=== PATIENT | female | born 1955 | race Caucasian/White ===

== ENCOUNTER 2017-01-29 08:21 | Observation (INO) ==
--- NOTE | 2017-01-29 09:14 | XRay Report ---
Indication: Fall this morning with ankle PAIN AND SWELLING PROCEDURE: XR ankle RT min 3V: Encounter: Initial Comparison: None Findings: Mildly displaced medial malleolar fracture with an oblique minimally displaced fracture of the distal fibula. No additional acute fracture seen. Lateral soft tissue swelling. The ankle mortise appears symmetric. Tibiofibular syndesmosis does not appear widened. Subtle cortical irregularity of the posterior distal tibia seen on the lateral view only. Impression: Closed posttraumatic distal tibial and fibular fractures. This is at least a Howell type B ankle fracture. Slight irregularity of the posterior distal tibia on the lateral view could represent a trimalleolar fracture. .
[2017-01-29] MEDS ORDERED: MORPHINE SULFATE 10 MG/ML VIAL IVP PRN (09:31)
[2017-01-29] MEDS ORDERED: ONDANSETRON 4 MG/2 ML INJECTION IVP PRN ×2 (09:31→17:42)
[2017-01-29] MEDS ORDERED: NS 1,000 ML IV SCH ×2 (09:45→17:42)
--- NOTE | 2017-01-29 09:45 | Emergency Department Report ---
Lower Extremity Injury HPI - General Chief Complaint: Extremity Injury, Lower Stated Complaint: right ankle pain Time Seen by Provider: 01/29/17 09:00 - History of Present Illness HPI Narrative: 62-year-old female presents with right ankle pain. Patient was hoping remove a client in a wheelchair, the wheelchair caught coming out of the van and began to tip. She pulled the wheelchair trying to straighten it and the wheelchair came off the van and onto her ankle. She feels like her ankle folded up underneath her. She cannot bear weight without severe pain. No other injuries or complaints. She did eat breakfast at approximately 06 30 this morning. She is on no blood thinners. She states she has sensation down into her toes. - Related Data Home Medications Medication Instructions Recorded Confirmed Acetaminophen [Tylenol Extra 1 - 2 tab PO Q6H PRN #0 tab 03/23/14 Strength] Ibuprofen 1 cap PO Q4H PRN #0 cap 03/23/14 01/29/17 [place]-3 Fatty Acids/Fish Oil [Fish 1,000 mg PO DAILY #0 cap 03/23/14 01/29/17 Oil 1,000 mg Capsule] Albuterol Sulfate (Albuterol 2 puff INH PRN PRN #0 inhaler 03/24/14 01/29/17 Sulfate Hfa) Atomoxetine HCl [Strattera] 40 mg PO DAILY 01/29/17 01/29/17 Atorvastatin [Lipitor] 1 tab PO HS 01/29/17 01/29/17 Brexpiprazole [Rexulti] 0.5 mg PO DAILY 01/29/17 01/29/17 Levomilnacipran HCl [Fetzima] 80 mg PO DAILY 01/29/17 01/29/17 Raloxifene HCl 60 mg PO DAILY 01/29/17 01/29/17 Allergies Allergy/AdvReac Type Severity Reaction Status Date / Time Shellfish Allergy Unknown Uncoded 01/29/17 08:40 Review of Systems All systems: reviewed and negative except as stated PFSH Patient Stated Medical History Other Yes: CYSTITIS Depression Yes Now No - Social History Smoking status: Never smoker Substance use type: does not use Alcohol intake frequency: does not drink Physical Exam - General General appearance: alert, in distress (from fracture/ankle pain) - Normal Exams: Head:: Normocephalic without trauma Neck:: Full range of motion, without adenopathy, JVD, bruits or thyromegaly Chest/Respirations:: Clear all baeza, with good airflow, and symmetry bilaterally Cardiovascular:: Regular rate and rhythm, without murmur or gallop, Pulses 2+ all extremities, capillary refill, <2 seconds all extremities Abdomen:: Bowel sounds positive, soft, non-tender, non-distended, no hepatosplenomegaly, masses or bruits noted Neurological:: Patient is alert, and oriented, cranial nerves, motor/sensory/ cerebellar, exams w/o gross deficits, to observation - Expanded Lower Extremity Exam Ankle exam: Present: tenderness, swelling, ecchymosis, other (right ankle has tenderness swelling and ecchymosis on both malleoli. Pedal pulses positive) Course Vital Signs Temperature 97.9 F 01/29/17 08:25 Pulse Rate 94 01/29/17 08:25 Respiratory Rate 18 01/29/17 08:25 Blood Pressure 133/68 01/29/17 08:25 Pulse Oximetry 99 01/29/17 08:25 Temperature 97.9 F 01/29/17 08:25 Pulse Rate 90 01/29/17 08:40 Respiratory Rate 18 01/29/17 08:25 Blood Pressure 133/68 01/29/17 08:25 Pulse Oximetry 99 01/29/17 08:25 Extremity Injury, Lower - MDM Narrative Medical decision making narrative: Distal tibia and fibular fracture noted. This was discussed with radiology and with orthopedics. Dr. De La Torre will take the patient back to the OR this afternoon. Foot is iced and kept elevated. IV is in place. Disposition Clinical Impression: Tibia/fibula fracture Disposition: To [facility] Condition: Improved Prescriptions: No Action [place]-3 Fatty Acids/Fish Oil [Fish Oil 1,000 mg Capsule] 1,000 mg PO DAILY # 0 cap Acetaminophen [Tylenol Extra Strength] 1 - 2 tab PO Q6H PRN #0 tab PRN Reason: PAIN Albuterol Sulfate (Albuterol Sulfate Hfa) 2 puff INH PRN PRN #0 inhaler PRN Reason: Asthma Atomoxetine HCl [Strattera] 40 mg PO DAILY Raloxifene HCl 60 mg PO DAILY Brexpiprazole [Rexulti] 0.5 mg PO DAILY Ibuprofen 1 cap PO Q4H PRN #0 cap PRN Reason: Pain Atorvastatin [Lipitor] 1 tab PO HS Levomilnacipran HCl [Fetzima] 80 mg PO DAILY Referrals: Dustin Cherry DO [Primary Care Provider] - Time of Disposition: 09:45 - Seen By: physician
[2017-01-29] MEDS: MORPHINE SULFATE 10 MG SYRINGE IVP PRN ×2 (10:57→21:39)
[2017-01-29 11:43] VITALS: BMI 23.1
--- NOTE | 2017-01-29 11:55 | Consult Note ---
<Elba Seaman - Last Filed: 01/29/17 13:16> Consult Information - Data of Consult Patient: new to practice Consult date: 01/29/17 Requesting Physician: Kwaku De La Torre MD Primary Care Provider: Dustin Cherry DO - Consult Narrative Reason for consult: preop medical clearance History of present illness: Patient is a pleasant 62-year-old female patient of Dr. Cherry, who was admitted through the emergency room due to a tibia/fibula fracture. She works for [employer] and was backing a client in a wheelchair down the ramp from the van and the wheelchair started tipping over. When trying to correct this, she fell and twisted her ankle, and the wheelchair and client fell across her. This happened at 735 this morning. She denies any other injuries. She was evaluated in the emergency room with labs, EKG, and ankle x-ray. Her CBC and CMP were essentially normal. Her INR was 0.96. EKG was normal. Chest x-ray was ordered once she was on the floor. This is pending. She states she is in general good health. Her pain is currently under control. She last ate at 6:30 AM. PFSH Hyperlipidemia Depression/anxiety/ADHD Osteopenia GERD Fibromyalgia Rheumatoid arthritis-patient reports she has seen a specialist for this in [place]. She does not take medication for RA. Trigonitis Atrophic vaginitis-on ERT Surgical History: Hysterectomy and unilateral oophorectomy. . Tonsillectomy. "Bladder/urethral laser" for trigonitis (x4+)-Dr. Yee Family History: Father -cirrhosis (was a prieto who frequently worked with chemicals) Mother - hypertension - Social History Smoking status: Never smoker Substance use type: does not use Alcohol intake frequency: a few times a month (sangria) Housing: house Household members: spouse Current occupational status: employed ([employer]) Social history: PCP-Dr. Cherry Urologist-previously was Dr. Yee. Now seeing Dr. Rachel Hurley Review of Systems Comprehensive ROS: completed and no additional positive findings except those as stated - Gastrointestinal Gastrointestinal Comments: Last bowel movement was yesterday - Musculoskeletal Musculoskeletal Comments: Right ankle pain Medications Home Medications Medication Instructions Recorded Confirmed Type Acetaminophen [Tylenol Extra 1 - 2 tab PO Q6H PRN #0 tab 03/23/14 History Strength] Ibuprofen 1 cap PO Q4H PRN #0 cap 03/23/14 01/29/17 History [place]-3 Fatty Acids/Fish Oil [Fish 1,000 mg PO DAILY #0 cap 03/23/14 01/29/17 History Oil 1,000 mg Capsule] Albuterol Sulfate (Albuterol 2 puff INH PRN PRN #0 inhaler 03/24/14 01/29/17 History Sulfate Hfa) Atomoxetine HCl [Strattera] 40 mg PO DAILY 01/29/17 01/29/17 History Atorvastatin [Lipitor] 1 tab PO HS 01/29/17 01/29/17 History Brexpiprazole [Rexulti] 0.5 mg PO DAILY 01/29/17 01/29/17 History Levomilnacipran HCl [Fetzima] 80 mg PO DAILY 01/29/17 01/29/17 History Raloxifene HCl 60 mg PO DAILY 01/29/17 01/29/17 History Allergies Allergy/AdvReac Type Severity Reaction Status Date / Time No Known Drug Allergies Allergy Verified 01/29/17 11:32 Exam Vital Signs: Temperature 97.1 F 01/29/17 11:39 Pulse Rate 88 01/29/17 11:39 Respiratory Rate 16 01/29/17 11:39 Blood Pressure 140/89 H 01/29/17 11:39 Pulse Oximetry 99 01/29/17 11:39 Oxygen Delivery Method Room Air Height/Weight/BMI: Height 1.57 m Weight 57.4 kg Body Mass Index 23.1 - Constitutional Present: no acute distress, well nourished, well developed - Routine HEENT Exam Head: Present: normocephalic, atraumatic Eye: Present: EOMI, PERRL ENT: Present: mucous membranes moist, dentition normal - Routine Neck Exam Present: supple, full ROM - Routine Respiratory Exam Present: CTA bilaterally. Absent: wheezes - Routine Cardiovascular Exam Present: RRR, S1, S2. Absent: murmur - Routine Abdominal Exam Present: soft, normoactive bowel sounds, non distended. Absent: tenderness - Routine Extremities Exam Present: no edema, normal capillary refill Comments: Right ankle is splinted and wrapped - Routine Skin Exam Present: dry, warm - Routine Neurological Exam Present: alert, oriented X3 Cranial nerves III-XII intact - Routine Psychiatric Exam Present: normal affect, normal thought process Results - Labs CBC & Chem 7: 01/29/17 09:40 01/29/17 09:40 - ECG Data Tracing #1 Normal sinus rhythm with no acute changes. - Imaging and Cardiology Chest x-ray Additional comments: Negative Assessment and Plan (1) Tibia/fibula fracture Current visit: Yes Status: Acute (2) Hyperlipidemia Current visit: Yes Status: Acute (3) Depression Current visit: Yes Status: Acute (4) Osteopenia Current visit: Yes Status: Acute (5) Fibromyalgia Current visit: Yes Status: Acute (6) GERD without esophagitis Current visit: Yes Status: Acute Assessment and Plan: Assessment: Closed posttraumatic distal tibial and fibular fracture Hyperlipidemia Depression/anxiety/ADHD-follows with [facility] Osteopenia GERD Fibromyalgia Rheumatoid arthritis-patient reports she has seen a specialist for this in [place]. She does not take medication for RA. Trigonitis Atrophic vaginitis -on ERT Plan: Continue NPO status. Other orders per ortho. Patient is medically stable. Cleared for surgery. Hospital Course Summary Disclaimer: The visit summary below is not to be considered part of the above Progress Note. Sepsis Assessment - Evaluation Sepsis screening result: No Definite Risk <Jose Mejias - Last Filed: 01/29/17 13:54> Consult Information - Data of Consult Requesting Physician: Kwaku De La Torre MD Primary Care Provider: Dustin Cherry DO [facility] Patient Stated Medical History Valvular Heart Disease Yes Other Respiratory Yes: allergies, ADHD Hx Urinary Tract Infection Yes: urethra dilations every 5 years Other Yes: CYSTITIS Other Musculoskeletal Yes: osteopenia, 3 herniated disks on cervical Depression Yes Post Menopausal Yes Now No Exam Vital Signs: Temperature 97.1 F 01/29/17 11:39 Pulse Rate 88 01/29/17 11:39 Respiratory Rate 16 01/29/17 11:39 Blood Pressure 140/89 H 01/29/17 11:39 Pulse Oximetry 99 01/29/17 11:39 Oxygen Delivery Method Room Air Height/Weight/BMI: Height 1.57 m Weight 57.4 kg Body Mass Index 23.1 Results - Labs CBC & Chem 7: 01/29/17 09:40 01/29/17 09:40 Assessment and Plan (1) Tibia/fibula fracture Current visit: Yes Status: Acute (2) Hyperlipidemia Current visit: Yes Status: Acute (3) Depression Current visit: Yes Status: Acute (4) Osteopenia Current visit: Yes Status: Acute (5) Fibromyalgia Current visit: Yes Status: Acute (6) GERD without esophagitis Current visit: Yes Status: Acute DVT Prophylaxis: SCD's Assessment and Plan: Assessment: Closed posttraumatic distal tibial and fibular fracture Hyperlipidemia Depression/anxiety/ADHD-follows with [facility] Osteopenia GERD Fibromyalgia Rheumatoid arthritis-patient reports she has seen a specialist for this in [place]. She does not take medication for RA. Trigonitis Atrophic vaginitis -on ERT Have independently interviewed and examined pt. Chart reviewed. Case discussed with my PA. Care plan developed with my supervision; agree with above. Presents to ED secondary to trauma and pain from ankle injury. Was working to help back a patient in wheelchair down the van reji. Wheelchair wheels got caught and was struggling to reposition wheelchair. Chair started to move back and as she tried to correct this, the chair tipped over. She got her foot caught and twisted. Ultimately fell; wheelchair and patient landed on top of her. Denies head injury or loss of consciousness. Did have significant pain. Taken to [facility] for evaluation-found to have tib-fib fracture and subsequently placed in OBS status for definitive orthopedic evaluation and treatment. Patient has been in her typical state of health prior to this injury. No chest pressure/pain/palpations. Respiratory status stable without SOA, cough, or congestion. Does stay active and walks daily. Denies CAD or pulmonary disease. Lungs: clear CV: regular AB: soft nt/nd +BS MSE: awake alert appropriate. Communicates well. Plan: Agree with OBS plan. SCD for DVT prevention. Pain and nausea control. Anticipate Sx in near future. Medically stable for surgery - no obvious contraindications to surgery at this time. kevan is a pleasant 62-year-old female patient of Dr. Cherry, who was admitted through the emergency room due to a tibia/fibula fracture. She works for [employer] and was backing a client in a wheelchair down the ramp from the van and the wheelchair started tipping over. When trying to correct this, she fell and twisted her ankle, and the wheelchair and client fell across her. This happened at 735 this morning. She denies any other injuries. She was evaluated in the emergency room with labs, EKG, and ankle x-ray. Her CBC and CMP were essentially normal. Her INR was 0.96. EKG was normal. Chest x-ray was ordered once she was on the floor. This is pending. Hospital Course Summary Disclaimer: The visit summary below is not to be considered part of the above Progress Note.
--- NOTE | 2017-01-29 12:07 | Orthopedic History & Physical ---
Orthopedic HPI - HPI Comments 62 year old female with chief complaint of right ankle pain presents to the ER this AM after sustaining an injury at work. She was removing a client from a van this AM when the wheelchair got caught. She tried to manipulate it to move it, but it tipped and fell on her right ankle. She sustained an inversion type injury and has immediate pain. She was evaluated in the ER by Dr. Dubose who took X-rays revealing a bimalleolar ankle fracture, Howell type B. Orthopaedics was notified and agreed to admit with the hospitalist consulting for surgical clearance. She was placed in a splint, with strict elevation and ice and make NPO for surgery anticipated later this afternoon. She last ate at 0630 this AM a full breakfast. PFSH - Social History Smoking status: Never smoker Review of Systems - Constitutional Constitutional: Absent: fatigue, headache(s) - EENT Eyes: Absent: pain Ears, nose, mouth, throat: Absent: ear discharge - Cardiovascular Cardiovascular: Absent: chest pain Vascular: Absent: pallor of an extermity - Respiratory Respiratory: Absent: cough, dyspnea - Gastrointestinal Gastrointestinal: Absent: abdominal pain - Genitourinary Genitourinary General: Absent: chills, fever(s) - Musculoskeletal Musculoskeletal: Present: as per HPI, joint swelling, limited range of motion - Integumentary/Breasts Integumentary: Present: swelling - Neurological Neurological: Absent: numbness - Endocrine Endocrine: Absent: heat intolerance - Hematologic/Lymphatic Hematologic/Lymphatic: Absent: easy bleeding Medications Home Medications Medication Instructions Recorded Confirmed Type Acetaminophen [Tylenol Extra 1 - 2 tab PO Q6H PRN #0 tab 03/23/14 History Strength] Ibuprofen 1 cap PO Q4H PRN #0 cap 03/23/14 01/29/17 History [place]-3 Fatty Acids/Fish Oil [Fish 1,000 mg PO DAILY #0 cap 03/23/14 01/29/17 History Oil 1,000 mg Capsule] Albuterol Sulfate (Albuterol 2 puff INH PRN PRN #0 inhaler 03/24/14 01/29/17 History Sulfate Hfa) Atomoxetine HCl [Strattera] 40 mg PO DAILY 01/29/17 01/29/17 History Atorvastatin [Lipitor] 1 tab PO HS 01/29/17 01/29/17 History Brexpiprazole [Rexulti] 0.5 mg PO DAILY 01/29/17 01/29/17 History Levomilnacipran HCl [Fetzima] 80 mg PO DAILY 01/29/17 01/29/17 History Raloxifene HCl 60 mg PO DAILY 01/29/17 01/29/17 History Allergies Allergy/AdvReac Type Severity Reaction Status Date / Time No Known Drug Allergies Allergy Verified 01/29/17 11:32 Orthopedic Exam Vital signs: Temperature 97.1 F 01/29/17 11:39 Pulse Rate 88 01/29/17 11:39 Respiratory Rate 16 01/29/17 11:39 Blood Pressure 140/89 H 01/29/17 11:39 Pulse Oximetry 99 01/29/17 11:39 Oxygen Delivery Method Room Air - Constitutional General Appearance: Present: alert, orientated x3, mild distress - Respiratory Exam Present: non-labored - Cardiovascular Exam Capillary Refill: < 2-3 Seconds - Abdominal Exam Present: soft - Extremities Exam Present: pulses intact, joint swelling. Absent: calf tenderness - Integumentary Exam Present: pink, warm, dry - Lymphatic Lymphatic: Absent: lymphedema - Neurological Exam Present: intact to light touch, no deficits - Psychiatric Exam Present: normal affect - Labs Result Diagrams: 01/29/17 09:40 01/29/17 09:40 - Diagnostic results Knee x-ray: image reviewed Orthopedic Assessment and Plan (1) Bimalleolar fracture of right ankle Status: Acute Assessment and Plan: Recommend ORIF to align and stabilize her fracture. NPO, surgery planned for 01/29/17 afternoon, spoke with Susy SAGE and she gave verbal clearance for surgery. strict ice and elevation Risks and benefits of the recommended procedure were discussed with the patient and/or patient's legal new accounts banking representative. They include: infection, nerve damage, artery damage, stroke, NE, PE, DVT, ileus, continued pain, or risk that the injury may not heal despite surgery. There are also medical risks of anesthesia. Risks are not limited to the above mentioned alone. Hospital Course Summary Disclaimer: The visit summary below is not to be considered part of the above Progress Note.
--- NOTE | 2017-01-29 12:35 | XRay Report ---
Indication: pre-op medical eval PROCEDURE: XR chest 1V: Encounter: Initial Comparison: None FINDINGS: The lungs are clear. There is no abnormal airspace opacity, pleural effusion or pneumothorax identified. The heart size, pulmonary vasculature and mediastinum are within normal limits. No significant skeletal abnormality is seen. IMPRESSION: No acute cardiopulmonary abnormality. .
--- NOTE | 2017-01-29 12:55 | Anesthesia Preoperative Report ---
Anesthesia Preoperative Record - Date and Time Date: 01/29/17 Preoperative Diagnosis: right ankle pain NPO Since Date: 01/29/17 NPO Since Time: 06:30 Allergies/Adverse Reactions: Allergies Allergy/AdvReac Type Severity Reaction Status Date / Time No Known Drug Allergies Allergy Verified 01/29/17 11:32 - Vital Signs Vital Signs: Temperature 97.1 F 01/29/17 11:39 Pulse Rate 88 01/29/17 11:39 Respiratory Rate 16 01/29/17 11:39 Blood Pressure 140/89 H 01/29/17 11:39 Pulse Oximetry 99 01/29/17 11:39 Oxygen Delivery Method Room Air Height and Weight: Height 1.57 m Weight 57.4 kg Body Mass Index 23.1 - Medications Inpatient Medications: Current Medications Sodium Chloride (Normal Saline) 1,000 mls @ 75 mls/hr IV .[id number] EILEEN Last Admin: 01/29/17 10:52 Dose: 75 mls/hr Morphine Sulfate (Morphine Sulfate Inj) 2 - 10 mg IVP Q1H PRN PRN Reason: Pain Last Admin: 01/29/17 10:57 Dose: 2 mg Ondansetron HCl (Zofran) 4 mg IVP Q6H PRN PRN Reason: Nausea &/or vomiting Home Medications: Home Medications Medication Instructions Recorded Confirmed Type Acetaminophen [Tylenol Extra 1 - 2 tab PO Q6H PRN #0 tab 03/23/14 History Strength] Ibuprofen 1 cap PO Q4H PRN #0 cap 03/23/14 01/29/17 History [place]-3 Fatty Acids/Fish Oil [Fish 1,000 mg PO DAILY #0 cap 03/23/14 01/29/17 History Oil 1,000 mg Capsule] Albuterol Sulfate (Albuterol 2 puff INH PRN PRN #0 inhaler 03/24/14 01/29/17 History Sulfate Hfa) Atomoxetine HCl [Strattera] 40 mg PO DAILY 01/29/17 01/29/17 History Atorvastatin [Lipitor] 1 tab PO HS 01/29/17 01/29/17 History Brexpiprazole [Rexulti] 0.5 mg PO DAILY 01/29/17 01/29/17 History Levomilnacipran HCl [Fetzima] 80 mg PO DAILY 01/29/17 01/29/17 History Raloxifene HCl 60 mg PO DAILY 01/29/17 01/29/17 History - Medical History Respiratory: Reports: Other (allergies, ADHD) Neuro/Musculoskeletal: Reports: Back Problems (neck disc herniation history with radiculopathy right arm), Depression - Surgical History HEENT Surgeries: Reports: Nose Surgery (septum surgery 2011), Tonsillectomy GI Surgery/Treatments: Reports: Colonoscopy (2014 results normal) Surgery/Treatment: REPORT: Other (laser bladder surgery 2012) Reproductive Surgery/Treatment: Reports: Section, Hysterectomy Anesthesia Reactions: None Hx Family Anesthesia Reaction: No History of Motion Sickness: No - Social History Smoking Status: Never smoker Hx Chewing Tobacco Use: No Second Hand Exposure: No Substance Use Type: does not use Alcohol Intake Frequency: does not drink (sangria) - Physical Exam Respiratory Exam: Present: lungs clear Cardiovascular Exam: Present: regular rate and rhythm - Airway Assessment Mallampati Score: II TMD: 3 Fingerbreadths Neck Extension: fair Overall Assessment: no airway concerns - ASA ASA Score: 2, E - Plan Plan: GA vs. TIVA with popliteal and saphaneous nerve block Anesthesia: General TIVA, General Inhalation Gases Peripheral Nerve Block: Popliteal-Right, Saphenous-Right - Discussion Discussion: Discussed risks/options/alternatives of anesthesia and questions answered. Patient consents. Nursing pain assessment noted. Attestation Statement: Prior to the delivery of any anesthetic medication, I examined the patient, developed the plan, obtained the patient's consent and discussed the risk and benefits of the procedure with the patient/guardian. - Additional Information Seen by Anesthesia: Yes
[2017-01-29] MEDS ORDERED: FentaNYL 100 MCG/2 ML INJECTION ONE (13:11)
[2017-01-29] MEDS ORDERED: KETAMINE 500 MG/10 ML INJECTION ONE (13:11)
[2017-01-29] MEDS ORDERED: MIDAZOLAM 2mg/2ml INJECTION ONE (13:11)
[2017-01-29] MEDS ORDERED: LIDOCAINE 2%/EPI 1:200,000 20ml SDV PF ONE (13:12)
[2017-01-29] MEDS ORDERED: ROPIVACAINE 0.5% (5mg/ml) 30ml INJ ONE (13:12)
[2017-01-29] MEDS ORDERED: MIDAZOLAM 2mg/2ml INJECTION IVP ONE (14:19)
--- NOTE | 2017-01-29 14:49 | Anesthesia Procedure Note ---
Peripheral Nerve Blockade - Procedure Physician: Kwaku De La Torre MD Date: 01/29/17 Discussion: Discussed risks/options/alternatives of anesthesia and questions answered. Patient consents. Nursing pain assessment noted. Block Start: 14:25 Block Stop: 14:36 Blocked Employed: Popliteal, Single Injection Indication: Post-Operative Pain Approach: Right Side Confirmed Position: LLD Patient: Consent, Risks/Benefits Discussed, Informed, Post Block Act. Discussed IV Sedation: Yes Midazolam (mg): 2 Initial Vital Signs: Temperature 97.9 F 01/29/17 08:25 Temperature Source Oral 01/29/17 08:25 Sepsis Recent Fever Within 48 Hours No 01/29/17 08:25 Sepsis Suspicion of Infection No 01/29/17 08:25 Sepsis New/Unexplained Change in Mental Status No 01/29/17 08:25 Sepsis Score/Level No Definite Risk 01/29/17 08:25 Sepsis Action Taken by Nursing No Action 01/29/17 08:25 Pulse Rate 94 01/29/17 08:25 Pulse Rhythm 01/29/17 08:25 Pulse Strength Normal 01/29/17 08:25 Respiratory Rate 18 01/29/17 08:25 Respiratory Effort Non-Labored 01/29/17 08:25 Respiratory Depth Normal 01/29/17 08:25 Respiratory Pattern 01/29/17 08:25 Blood Pressure 133/68 01/29/17 08:25 Blood Pressure Mean 89 01/29/17 08:25 Blood Pressure Position Sitting 01/29/17 08:25 Pulse Oximetry 99 01/29/17 08:25 Oxygen Delivery Method 01/29/17 08:25 Post Vital Signs: Temperature 98.5 F 01/29/17 14:08 Pulse Rate 97 01/29/17 14:41 Respiratory Rate 19 01/29/17 14:41 Blood Pressure 120/61 01/29/17 14:41 Pulse Oximetry 97 01/29/17 14:41 Oxygen Delivery Method Room Air Prep: Chlorhexadine/ETOH, Sterile Technique Ultrasound Used?: Yes - Nerve Simulator mA Set At: 5 Abates at (mA): 0.44 Twitch at: 1 Hz Needle Depth: 2 Muscle Response: No Paresthesia/Pain: None - Injectate Ropivacaine (%): 0.5 Ropivacaine (mL): 15 Lidocaine (%): 2 (with epi) Lidocaine (mL): 10 Was Epi 1:200,000 Used?: Yes Injection: Injection made incrementally with constant monitoring and aspiration every 5 ml
--- NOTE | 2017-01-29 14:50 | Anesthesia Procedure Note ---
Peripheral Nerve Blockade - Procedure Physician: Kwaku De La Torre MD Date: 01/29/17 Discussion: Discussed risks/options/alternatives of anesthesia and questions answered. Patient consents. Nursing pain assessment noted. Block Start: 14:41 Blocked Employed: Single Injection, Other (saphaneous nerve) Indication: Post-Operative Pain Approach: Right Side Confirmed Position: Supine Patient: Consent, Risks/Benefits Discussed, Informed, Post Block Act. Discussed IV Sedation: Yes Initial Vital Signs: Temperature 97.9 F 01/29/17 08:25 Temperature Source Oral 01/29/17 08:25 Sepsis Recent Fever Within 48 Hours No 01/29/17 08:25 Sepsis Suspicion of Infection No 01/29/17 08:25 Sepsis New/Unexplained Change in Mental Status No 01/29/17 08:25 Sepsis Score/Level No Definite Risk 01/29/17 08:25 Sepsis Action Taken by Nursing No Action 01/29/17 08:25 Pulse Rate 94 01/29/17 08:25 Pulse Rhythm 01/29/17 08:25 Pulse Strength Normal 01/29/17 08:25 Respiratory Rate 18 01/29/17 08:25 Respiratory Effort Non-Labored 01/29/17 08:25 Respiratory Depth Normal 01/29/17 08:25 Respiratory Pattern 01/29/17 08:25 Blood Pressure 133/68 01/29/17 08:25 Blood Pressure Mean 89 01/29/17 08:25 Blood Pressure Position Sitting 01/29/17 08:25 Pulse Oximetry 99 01/29/17 08:25 Oxygen Delivery Method 01/29/17 08:25 Post Vital Signs: Temperature 98.5 F 01/29/17 14:08 Pulse Rate 97 01/29/17 14:41 Respiratory Rate 19 01/29/17 14:41 Blood Pressure 120/61 01/29/17 14:41 Pulse Oximetry 97 01/29/17 14:41 Oxygen Delivery Method Room Air Prep: Chlorhexadine/ETOH, Sterile Technique Ultrasound Used?: Yes - Nerve Simulator mA Set At: 0 Muscle Response: No Paresthesia/Pain: None - Injectate Ropivacaine (%): 0.5 Ropivacaine (mL): 5 Lidocaine (%): 2 (with epi) Lidocaine (mL): 5 Was Epi 1:200,000 Used?: Yes Injection: Injection made incrementally with constant monitoring and aspiration every ml
[2017-01-29] MEDS ORDERED: CEFAZOLIN 1 G in NS 100 ML IV ONE (14:56)
[2017-01-29] MEDS ORDERED: LR 1,000 ML IV SCH (15:24)
[2017-01-29] MEDS ORDERED: PROPOFOL 500 MG/50 ML VIAL IV ONE (15:26)
[2017-01-29] MEDS ORDERED: CEFAZOLIN 1 G INJECTION IVP ONE (15:47)
[2017-01-29] MEDS ORDERED: PROPOFOL 20 ML ONE ×2 (16:38)
--- NOTE | 2017-01-29 16:54 | Remote Fluorsocopy Report ---
Indication: FX RT ANKLE PROCEDURE: RF ankle RT 2 view: Encounter: Initial Comparison: Ankle radiographs from earlier today Findings: Three fluoroscopic spot images are submitted for interpretation. Images show open reduction and internal fixation of the distal tibial and fibular fractures with placement of two partially threaded cannulated lag screws across the medial malleolar fracture along with a lateral side plate and screws across the distal fibular fracture. Improved alignment of the fracture fragments which is anatomic. Impression: Intraoperative fluoroscopy as above. Fluoroscopy time is 69.4 seconds. Fluoroscopy dose is 219.8 mRad. .
[2017-01-29] MEDS ORDERED: HYDROMORPHONE 2 MG/ML INJECTION IVP PRN (17:27)
--- NOTE | 2017-01-29 17:36 | Anesthesia Postoperative Note ---
- Date and Time Date: 01/29/17 Time: 17:35 - Status Patient Participated in Evaluation: Patient Participated in Person Vital Signs: Temperature 97.6 F 01/29/17 17:07 Pulse Rate 91 01/29/17 17:30 Respiratory Rate 16 01/29/17 17:30 Blood Pressure 127/65 01/29/17 17:30 Pulse Oximetry 97 01/29/17 17:30 Oxygen Delivery Method Room Air Respiratory Function: Airway Patent, Regular Respirations Cardiovascular Function: Regular Pulse Mental Status: Alert and Oriented Pain Intensity: 2 Hydration: IV Infusing Complications During Recover: None Apparent - Follow-Up Instructions Instructions: Per Surgeon
[2017-01-29] MEDS ORDERED: SENNA + DOCUSATE TABLET PO PRN (17:42)
[2017-01-29] MEDS: HYDROCODONE/APAP 7.5 MG/325 MG TABLET PO PRN (18:17)
[2017-01-29] MEDS: NOZIN NASAL SWAB NAS SCH (18:18)
[2017-01-29] MEDS ORDERED: ALBUTEROL 2.5mg/3ml (0.083%) NEB AEROSOL PRN (19:00)
[2017-01-30] MEDS: CEFAZOLIN 1 G in NS 100 ML IV SCH ×2 (00:30→07:33)
[2017-01-30] MEDS: HYDROCODONE/APAP 7.5 MG/325 MG TABLET PO PRN (01:00)
[2017-01-30] MEDS: NOZIN NASAL SWAB NAS SCH ×2 (01:42→08:53)
[2017-01-30] MEDS: MORPHINE SULFATE 10 MG SYRINGE IVP PRN (04:13)
[2017-01-30 07:40] VITALS: RESP 16
[2017-01-30] MEDS ORDERED: Oxycodone *IR* 5 MG TABLET PO PRN (07:42)
[2017-01-30] MEDS ORDERED: ACETAMINOPHEN 325 MG TABLET PO PRN (07:43)
--- NOTE | 2017-01-30 07:55 | Operative Note ---
DATE OF PROCEDURE 01/29/2017 PREOPERATIVE DIAGNOSIS Right bimalleolar ankle fracture. POSTOPERATIVE DIAGNOSIS Right bimalleolar ankle fracture. PROCEDURE Open reduction internal fixation, right bimalleolar ankle fracture. SURGEON Kwaku De La Torre MD [employer] OPERATOR Dominic Powell PA-C ANESTHESIA Regional with sedation. FLUIDS Please refer to Anesthesia chart EBL Minimal. TOURNIQUET Please refer to Anesthesia chart. COMPLICATIONS None. CONDITION Stable to recovery room. DESCRIPTION OF PROCEDURE The patient was identified in the preoperative holding area. The operative extremity was identified and appropriately marked. Risks, benefits, alternatives and potential complications had been explained in the preoperative holding and informed consent was obtained. The patient was taken to the operating theatre, placed supine on the operating table. Appropriate cardiorespiratory monitors were applied. Regional block had been placed in preop holding by Anesthesia. Sedation was then administered. A tourniquet was applied high on the right thigh though not yet inflated. The patient's splint was then removed from the right lower extremity. Skin remained intact. Swelling was mild. The right lower extremity was then sterilely prepped and draped in the usual fashion. Surgical time-out was performed, confirmed with myself, the soup mixer and circulating nurse. Preoperative antibiotics had been given. The leg was exsanguinated with an Esmarch and the tourniquet inflated. Attention was first turned towards the lateral malleolus. An 8 cm incision was created from the tip of the lateral malleolus proximally. Blunt dissection was carried through the subcutaneous fat. Branch of the superficial peroneal nerve was identified and retracted anteriorly. Fracture site was easily identified. This was a simple fracture extending from posterior and proximal to distal anterior at the level of the joint line in this Howell B fat fracture. Fracture site was cleared of hematoma. Any periosteum at the fracture site was elevated as well. Gentle manipulation of the ankle and the use of a kookh-id-fvhte reduction clamp were used to obtain an anatomic reduction. Position was confirmed fluoroscopically and visually. Following this, a standard AO technique was utilized to place interfragmentary lag screw from anterior and proximal to distal and posterior. The screw was measured and then inserted to afford a good compression at the fracture site. The pyfcr-zp-ptvoq reduction clamp was then removed. Appropriate sized lateral malleolar plate was then placed. This was a Sugar combination locking VariAx plate. This was positioned over the lateral malleolus. A proximal bicortical screw was placed first to pull the plate down to bone. Utilizing fluoroscopy, three distal locking screws were placed in the distal fibula in a unicortical fashion. This was followed by placement of two additional proximal bicortical screws. The wound was then copiously irrigated and then closed in standard layered fashion by the infertility medical assistant. At this time attention was turned towards the medial malleolar fracture. A 5 cm incision was created over the medial malleolus. Electrocautery was used for hemostasis as necessary. One branch of the lesser saphenous vein was cauterized and coagulated to allow retraction over the fracture site. Periosteum was again elevated and fracture site was cleared of hematoma. This was a fairly small fracture piece and extended from the crux of the joint in a sloped more posterior direction than typical as opposed to a more transverse direction. In order get perpendicular to the fracture site, we had to aim our screws more posteriorly. A xlaxm-jx-qrfud reduction clamp was used to reduce the fracture and hold it in a provisional fashion. Two guidewires for the 4-0 cannulated screws were then advanced. These were then measured. The distal cortex was then drilled and the two screws were then placed, affording excellent compression across the fracture site. Final x-rays were then obtained in the AP lateral and mortise views. A stress mortise view showed stable syndesmosis. The medial wound was then copiously irrigated and closed in a standard layered fashion. Sterile dressings were then applied followed by well-padded posterior slab and sugar- tong splint and this was overwrapped with an Juan Alberto bandage, maintaining the ankle in neutral dorsiflexion. The tourniquet was deflated. The patient was awakened from anesthesia and taken to the recovery room in stable and satisfactory condition. HERNAN
--- NOTE | 2017-01-30 08:03 | Discharge Instructions ---
Discharge Plan - Med Rec/Dispo Referrals/Follow Up: Dominic Powell PA [Physician [employer] Commerce Developer] - 2 Weeks (please call [phone] to arrange appointment.) [place] Instructions: [facility] [place] Prescriptions: New Acetaminophen [Tylenol] 650 mg PO Q6H PRN #100 tablet PRN Reason: Discomfort Aspirin *EC* [Ecotrin] 1 tab PO BID #84 tab Oxycodone *Ir* [Roxicodone *Ir*] 5 - 15 mg PO Q3H PRN #60 tablet PRN Reason: Pain Ondansetron [Zofran Odt] 1 tab PO Q6HR #10 tab Continue [place]-3 Fatty Acids/Fish Oil [Fish Oil 1,000 mg Capsule] 1,000 mg PO DAILY # 0 cap Albuterol Sulfate (Albuterol Sulfate Hfa) 2 puff INH PRN PRN #0 inhaler PRN Reason: Asthma Atomoxetine HCl [Strattera] 40 mg PO DAILY Raloxifene HCl 60 mg PO DAILY Brexpiprazole [Rexulti] 0.5 mg PO DAILY Atorvastatin [Lipitor] 1 tab PO HS Levomilnacipran HCl [Fetzima] 80 mg PO DAILY Discontinued Acetaminophen [Tylenol Extra Strength] 1 - 2 tab PO Q6H PRN #0 tab PRN Reason: PAIN Ibuprofen 1 cap PO Q4H PRN #0 cap PRN Reason: Pain - Disposition 01 Discharged Home, Self-Care
--- NOTE | 2017-01-30 08:18 | Orthopedic Progress Note ---
Date: Subjective/Severity of Illness: Lara is doing okay. Her pain has been elevated and she has not done well with [place]. She has done better with Oxycodone in the past. She denies numbness, shortness of breath, or calf pain. She is going to work with PT today and discharge is anticipated this afternoon. Orthopedic Objective PO Vital signs: Temperature 97.5 F 01/30/17 07:39 Pulse Rate 105 H 01/30/17 07:39 Respiratory Rate 16 01/30/17 07:39 Blood Pressure 148/86 H 01/30/17 07:39 Pulse Oximetry 97 01/30/17 07:39 Oxygen Delivery Method Room Air Oxygen Flow Rate 1 Height and Weight: Height 5 ft 2 in Weight 131 lb 2.801 oz Body Mass Index 23.1 - Constitutional General Appearance: Present: alert, orientated x3, mild distress - Respiratory Exam Present: non-labored - Cardiovascular Exam Present: tachycardia (secondary to pain, 1 reading thus far) Capillary Refill: < 2-3 Seconds - Abdominal Exam Present: soft - Extremities Exam Extremities: Present: pulses intact Comments: splint fitting well - Integumentary Exam Present: pink, warm, dry - Lymphatic Lymphatic: Absent: lymphedema - Neurological Exam Present: intact to light touch, no deficits - Psychiatric Exam Present: normal affect - Labs Result Diagrams: 01/30/17 04:30 01/30/17 04:30 Abnormal lab results 01/30/17 01/30/17 Range/Units 04:30 04:30 Neut % (Auto) 76.1 H (33-66) % Lymph % (Auto) 15.2 L (23-45) % Neut # 7.9 H (1.8-7.7) T/MM3 Creatinine 0.6 L (0.7-1.2) MG/DL H & H 01/30/17 Range/Units 04:30 Hgb 13.9 (12-16) GM/DL Hct 41.2 (36-46) % Orthopedic Assessment and Plan (1) Bimalleolar fracture of right ankle Status: Acute Assessment and Plan: s/p ORIF bimalleolar fracture, Dante Escalante, by Dr. De La Torre on 01/29/17. Non weight bearing on right side. PT to mobilize today [place] discontinued Oxycodone 5-15mg PO Q3H started in addition to Tylenol 650mg PO Q6H. While at hospital will use Lovenox 40mg SQ for DVT prevention, on discharge ASA 325mg PO BID for a 6 week course. 2 week follow up with Dominic GONZALEZ. Hospital Course Summary Disclaimer: The visit summary below is not to be considered part of the above Progress Note.
[2017-01-30] MEDS ORDERED: ATOMOXETINE 10 MG PO SCH (09:00)
[2017-01-30] MEDS ORDERED: BREXPIPRAZOLE 0.5 MG PO SCH (09:00)
[2017-01-30] MEDS ORDERED: ENOXAPARIN 40 MG/0.4 ML INJECTION SQ SCH (09:00)
[2017-01-30] MEDS ORDERED: LEVOMILNACIPRAN 40 MG PO SCH (09:00)
[2017-01-30] MEDS ORDERED: RALOXIFENE 60 MG TABLET PO SCH (09:00)
[2017-01-30] MEDS ORDERED: OMEGA-3 ACID ESTERS 1 GM CAPSULE PO SCH (09:00)
--- NOTE | 2017-01-30 11:35 | Progress Note ---
Subjective: F/U: Right Tib/fib fracture, FM, HDL, GERD Doing okay this morning. Pain controlled, about a 4/10 currently. Tolerating oral pain medications; not some somnolency but not nausea. Had itching last night with MS. Breathing well-not SOA or congested. No chest pressure or pain. Not feeling nausea. Did work with therapy this am; she reports therapy told her she got an 'A' with her work. Objective Vital signs: Temperature 97.5 F 01/30/17 07:39 Pulse Rate 105 H 01/30/17 07:39 Respiratory Rate 16 01/30/17 07:39 Blood Pressure 148/86 H 01/30/17 07:39 Pulse Oximetry 97 01/30/17 07:39 Oxygen Delivery Method Room Air Oxygen Flow Rate 1 Height/Weight/BMI: Height 1.57 m Weight 59.5 kg Body Mass Index 23.1 - Routine HEENT Exam Head: Present: normocephalic, atraumatic Eye: Present: EOMI, PERRL ENT: Present: mucous membranes moist - Routine Respiratory Exam Present: CTA bilaterally. Absent: respiratory distress, rhonchi, wheezes, crackles - Routine Cardiovascular Exam Present: RRR, no murmur - Routine Abdominal Exam Present: soft, normoactive bowel sounds, non distended, non tender - Routine Extremities Exam Present: pulses intact. Absent: cyanosis, clubbing - Routine Musculoskeletal Exam Musculoskeletal: Present: no clubbing or cyanosis, normal strength, other (Cast to right lower ext ) - Routine Skin Exam Present: intact, warm, normal turgor - Routine Neurological Exam Present: alert, oriented X3, CN II-XII intact, vision grossly intact, hearing grossly intact. Absent: motor deficit - Routine Psychiatric Exam Present: normal affect, normal thought process, cooperative, good insight, good judgment Results - Labs CBC & Chem 7: 01/30/17 04:30 01/30/17 04:30 Assessment and Plan (1) Tibia/fibula fracture Current visit: Yes Status: Acute (2) Hyperlipidemia Current visit: Yes Status: Chronic (3) Depression Current visit: Yes Status: Chronic (4) Osteopenia Current visit: Yes Status: Chronic (5) Fibromyalgia Current visit: Yes Status: Chronic (6) GERD without esophagitis Current visit: Yes Status: Chronic DVT Prophylaxis: SCD's, Lovenox Resuscitation Status: Full Code Assessment and Plan: Assessment: Closed posttraumatic distal tibial and fibular fracture Hyperlipidemia Depression/anxiety/ADHD-follows with [place] Osteopenia GERD Fibromyalgia Rheumatoid arthritis-patient reports she has seen a specialist for this in [place]. She does not take medication for RA. Trigonitis Atrophic vaginitis -on ERT Plan Encourage therapy and activities. Continue with pain control - discussed potential side effects of pain medications with patient. Watch for constipation with pain medications. Continue with home medications. CM checking on need for Home health and outpatient therapy options. Medically doing well-likely discharge this afternoon if continues to do well. Sepsis Assessment - Evaluation Sepsis screening result: No Definite Risk Hospital Course Summary Disclaimer: The visit summary below is not to be considered part of the above Progress Note.
[2017-01-30 12:26] VITALS: BP 143/86; PULSE 97; TEMP 96.4; O2SAT 98
== END 2017-01-30 12:45 | disposition home or self-care (01) ==
LOC: SRG 08:21 → ED 08:21 → SRG 11:23
PROVIDERS: ADMIT Orthopaedic Surgery; ATTEND Orthopaedic Surgery